=== PATIENT | female | born 1950 | race Caucasian/White ===

== ENCOUNTER → 2016-10-03 | Outpatient (CLI) | payer MEDICARE | LOC: OD 10:00 | PROVIDERS: ATTEND Family Medicine | DX: S99.912A Unspecified injury of left ankle, initial encounter (principal); X58.XXXA Exposure to other specified factors, initial encounter; Y93.9 Activity, unspecified; Y92.9 Unspecified place or not applicable ==

== ENCOUNTER 2017-09-10 18:28 | Emergency (ER) | payer MEDICARE, MEDICAID ==
--- NOTE | 2017-09-10 19:22 | ER Document Report ---
ED Medical Screen (RME) - General Chief Complaint: Chest Pain Stated Complaint: CHEST PAIN Time Seen by Provider: 09/10/17 19:21 Notes: bypass pt presents with depression, chest pain, anxiety for several days TRAVEL OUTSIDE OF THE [place] IN LAST 30 DAYS: No - Related Data Allergies/Adverse Reactions: latex Allergy (Verified 09/10/17 18:29) Penicillins Allergy (Verified 09/10/17 18:29) iv dye Allergy (Uncoded 09/10/17 18:29) Past Medical History Renal/ Medical History: Denies: Hx Peritoneal Dialysis Psychiatric Medical History: Reports: Hx Depression Past Surgical History: Reports: Hx Cardiac Surgery - cardiac bypass 18 years ago Physical Exam - Vital signs Vitals: Temp Pulse Resp BP Pulse Ox 98.4 F 88 20 149/88 H 94 09/10/17 18:55 09/10/17 18:55 09/10/17 18:55 09/10/17 18:55 09/10/17 18:55 Course - Vital Signs Vital signs: Temp Pulse Resp BP Pulse Ox 98.4 F 88 20 149/88 H 94 09/10/17 18:55 09/10/17 18:55 09/10/17 18:55 09/10/17 18:55 09/10/17 18:55
[2017-09-10 20:22] LABS: ABSOLUTE BASOPHILS # (AUTO) 0.1 10^3/uL (0.0-0.2); ABSOLUTE EOSINOPHILS # (AUTO) 0.4 10^3/uL (0.0-0.6); ABSOLUTE LYMPHOCYTES (AUTO) 1.7 10^3/uL (0.5-4.7); ABSOLUTE MONOCYTES (AUTO) 0.6 10^3/uL (0.1-1.4); ABSOLUTE NEUT (AUTO) 4.8 10^3/uL (1.7-8.2); BASOPHILS % (AUTO) 0.9 % (0-2); EOSINOPHILS % (AUTO) 5.3 % (0-6); LYMPHOCYTES % (AUTO) 22.3 % (13-45); MEAN CORPUSCULAR HEMOGLOBIN 31.2 pg (27.0-33.4); MEAN CORPUSCULAR HGB CONC 34.8 g/dL (32.0-36.0); MEAN CORPUSCULAR VOLUME 90 fl (80-97); PLATELET COUNT 295 10^3/uL (150-450); RED CELL DISTRIBUTION WIDTH 13.1 % (11.5-14.0); SEGMENTED NEUTROPHILS % (AUTO) 63.5 % (42-78); TOTAL CELLS COUNTED % (AUTO) 100 %; WHITE BLOOD COUNT 7.5 10^3/uL (4.0-10.5)
[2017-09-10 20:38] LABS: ALANINE AMINOTRANSFERASE 20 U/L (9-52); ALBUMIN 4.1 g/dL (3.5-5.0); ALKALINE PHOSPHATASE 72 U/L (38-126); ANION GAP 10 (5-19); ASPARTATE AMINO TRANSFERASE 18 U/L (14-36); BILIRUBIN,DIRECT 0.4 mg/dL (0.0-0.4); BILIRUBIN,TOTAL 0.4 mg/dL (0.2-1.3); BLOOD UREA NITROGEN 16 mg/dL (7-20); CALCIUM 9.6 mg/dL (8.4-10.2); CARBON DIOXIDE 30 mmol/L (22-30); CHLORIDE 102 mmol/L (98-107); GLUCOSE 139 mg/dL (75-110); POTASSIUM 3.4 mmol/L (3.6-5.0); SODIUM 142.1 mmol/L (137-145); TOTAL PROTEIN 7.2 g/dL (6.3-8.2)
[2017-09-10 23:27] LABS: APPEARANCE,URINE SLIGHTLY-CLOUDY; BILIRUBIN,URINE NEGATIVE (NEGATIVE); COLOR,URINE YELLOW; GLUCOSE, URINE NEGATIVE (NEGATIVE); KETONES,URINE NEGATIVE (NEGATIVE); LEUKOCYTE ESTERASE,URINE MODERATE (NEGATIVE); NITRITE,URINE NEGATIVE (NEGATIVE); PROTEIN,URINE NEGATIVE (NEGATIVE); URINE SPECIFIC GRAVITY 1.011; UROBILINOGEN,URINE NEGATIVE mg/dL (<2.0)
--- NOTE | 2017-09-10 23:40 | ER Document Report ---
ED General - General Mode of Arrival: Ambulatory Information source: Patient TRAVEL OUTSIDE OF THE [place] IN LAST 30 DAYS: No <FRANKI METZ - Last Filed: 09/11/17 03:40> <SIENA VO - Last Filed: 09/11/17 03:49> - General Chief Complaint: Chest Pain Stated Complaint: CHEST PAIN Time Seen by Provider: 09/10/17 19:21 Notes: Patient is a 67 year old female with a cardiac history presents to the emergency department complaining of chest pain and right shoulder pain onset 1 week ago worsening today. Patient states that she has a history of a cardiac bypass 18 years ago further stating this is when she had her last stress test. (FRANKI METZ) - Related Data Allergies/Adverse Reactions: latex Allergy (Verified 09/10/17 18:29) Penicillins Allergy (Verified 09/10/17 18:29) iv dye Allergy (Uncoded 09/10/17 18:29) Past Medical History - General Information source: Patient - Social History Smoking Status: Unknown if Ever Smoked Family History: Reviewed & Not Pertinent Patient has suicidal ideation: No Patient has homicidal ideation: No Renal/ Medical History: Denies: Hx Peritoneal Dialysis Psychiatric Medical History: Reports: Hx Depression Past Surgical History: Reports: Hx Cardiac Surgery - cardiac bypass 18 years ago <FRANKI METZ - Last Filed: 09/11/17 03:40> Review of Systems - Review of Systems Constitutional: No symptoms reported EENT: No symptoms reported Cardiovascular: See HPI, Chest pain Respiratory: No symptoms reported Gastrointestinal: No symptoms reported Genitourinary: No symptoms reported Female Genitourinary: No symptoms reported Musculoskeletal: See HPI Skin: No symptoms reported Hematologic/Lymphatic: No symptoms reported Neurological/Psychological: No symptoms reported -: Yes All other systems reviewed and negative <FRANKI METZ - Last Filed: 09/11/17 03:40> Physical Exam <FRANKI METZ - Last Filed: 09/11/17 03:40> <SIENA VO - Last Filed: 09/11/17 03:49> - Vital signs Vitals: Temp Pulse Resp BP Pulse Ox 98.4 F 88 20 149/88 H 94 09/10/17 18:55 09/10/17 18:55 09/10/17 18:55 09/10/17 18:55 09/10/17 18:55 - Notes Notes: GENERAL: Alert, interacts well. No acute distress. HEAD: Normocephalic, atraumatic. EYES: Pupils equal, round, and reactive to light. Extraocular movements intact. ENT: Oral mucosa moist, tongue midline. NECK: Full range of motion. Supple. Trachea midline. LUNGS: Clear to auscultation bilaterally, no wheezes, rales, or rhonchi. No respiratory distress. HEART: Regular rate and rhythm. No murmurs, gallops, or rubs. ABDOMEN: Soft, non-tender. Non-distended. Bowel sounds present in all 4 quadrants. EXTREMITIES: Moves all 4 extremities spontaneously. NEUROLOGICAL: Alert and oriented x3. Normal speech. PSYCH: Normal affect, normal mood. SKIN: Warm, dry, normal turgor. No rashes or lesions noted. (FRANKI METZ) Course - Laboratory Result Diagrams: 09/10/17 20:01 09/10/17 20:01 <FRANKI METZ - Last Filed: 09/11/17 03:40> - Laboratory Result Diagrams: 09/10/17 20:01 09/10/17 20:01 <SIENA VO - Last Filed: 09/11/17 03:49> - Re-evaluation Re-evalutation: 09/10/17 23:53 After discussing results with patient, gave the option of doing an inpatient stress test or a repeat EKG, repeat troponin and outpatient follow-up. Patient decided to do outpatient follow up after repeat EKG and troponin. (FRANKI METZ) 09/11/17 01:32 Patient serial EKG and troponin show no concerning findings. Discussed inpatient admission with stress testing patient opted to follow-up with her primary care physician for further evaluation. Return precautions provided regarding her intermittent chest discomfort. Advised that she needs stress testing for further evaluation she states she would do this from an outpatient basis. I did discuss risks and she understands those risks. (SIENA VO) - Vital Signs Vital signs: Temp Pulse Resp BP Pulse Ox 98.1 F 84 17 137/75 H 95 09/11/17 02:06 09/11/17 02:06 09/11/17 02:06 09/11/17 02:06 09/11/17 02:06 - Laboratory Laboratory results interpreted by me: 09/10/17 09/10/17 20:01 23:06 Potassium 3.4 L Glucose 139 H Ur Leukocyte Esterase MODERATE H Urine Ascorbic Acid 40 H Discharge <FRANKI METZ - Last Filed: 09/11/17 03:40> <SIENA VO - Last Filed: 09/11/17 03:49> - Discharge Clinical Impression: Chest pain Qualifiers: Chest pain type: unspecified Qualified Code(s): R07.9 - Chest pain, unspecified Condition: Stable Disposition: HOME, SELF-CARE Additional Instructions: As per our discussion, please follow-up with your primary care physician for outpatient care. If you have any new or worsening symptoms please return to emergency department. Referrals: DAMIAN ASTORGA MD [Primary Care Provider] - Follow up as needed Scribe Attestation: 09/11/17 03:49 I personally performed the services described documentation, reviewed and edited the documentation which was dictated to describe my presence, and it accurately records my words and actions. (SIENA VO) Scribe Documentation - Scribe Written by Scribe:: Paul Jimenez, 09/11/2017 00:06 acting as scribe for :: Stuart <FRANKI METZ - Last Filed: 09/11/17 03:40>
[2017-09-11 02:10] VITALS: BP 137/75
--- NOTE | 2017-09-11 08:00 | EKG REPORT ---
SEVERITY:- OTHERWISE NORMAL ECG - SINUS RHYTHM ATRIAL PREMATURE COMPLEX : Confirmed by: Nahid Matamoros MD 11-Sep-2017 07:59:43
--- NOTE | 2017-09-11 08:00 | EKG REPORT ---
SEVERITY:- ABNORMAL ECG - SINUS RHYTHM MULTIPLE ATRIAL PREMATURE COMPLEXES NONSPECIFIC INTRAVENTRICULAR CONDUCTION DELAY : Confirmed by: Nahid Matamoros MD 11-Sep-2017 07:59:28
== END 2017-09-11 01:50 | disposition home or self-care (01) ==
LOC: ER 18:28
DX: R07.9 Chest pain, unspecified (principal); M25.511 Pain in right shoulder; Z95.1 Presence of aortocoronary bypass graft; Z91.040 Latex allergy status; Z88.0 Allergy status to penicillin; Z91.041 Radiographic dye allergy status
CPT/HCPCS: 36415; 80053; 81001; 84484; 85025; 93005; 93010; 99285